=== PATIENT | female | born 1980 | race Caucasian/White ===

== ENCOUNTER 2017-09-25 16:37 | Emergency (ER) | payer OTHER ==
[2017-09-25 16:53] VITALS: BP 132/79
--- NOTE | 2017-09-25 17:17 | UC ---
Respiratory Complaint HPI - HPI Summary HPI Summary: Pt presents with generalized body aches, feeling feverish, and mild headache. She tells me that all these symptoms started this morning and wanted to be sure she didn't have the flu. She also mentions that she has left and right sided chest pressure on and off today. She has not taken her temperature or anything OTC for this. Denies sore throat, cough, sinus congestion, SOB, RODRIGUEZ, palpitations, abdominal pain, n/v/d/c, dizziness, or weakness. - History of Current Complaint Hx Obtained From: Patient Hx Last Menstrual Period: IUD Onset/Duration: Sudden Onset Timing: Constant Severity Initially: Moderate Severity Currently: Moderate Pain Intensity: 9 Pain Scale Used: 0-10 Numeric <Jakob Farah - Last Filed: 09/25/17 17:52> <Meera Neumann - Last Filed: 09/25/17 21:23> - History of Current Complaint Chief Complaint: UCGeneralIllness Stated Complaint: FEVER Time Seen by Provider: 09/25/17 16:59 - Allergies/Home Medications Allergies/Adverse Reactions: Allergies Allergy/AdvReac Type Severity Reaction Status Date / Time No Known Allergies Allergy Verified 08/22/13 12:10 Home Medications: Home Medications Ibuprofen [Advil] 200 mg PO TID PRN 09/25/17 [History Confirmed 09/25/17] Levonorgestrel (Iud) [Mirena IUD] 20 mcg IU 09/25/17 [History] PMH/Surg Hx/FS Hx/Imm Hx Previously Healthy: Yes - Surgical History Surgical History: None - Social History Alcohol Use: Occasionally Substance Use Type: None Smoking Status (MU): Never Smoked Tobacco - Immunization History Most Recent Influenza Vaccination: 2016 Most Recent Tetanus Shot: 2003 Most Recent Pneumonia Vaccination: none <Jakob Farah - Last Filed: 09/25/17 17:52> Review of Systems Constitutional: Other - Body aches Skin: Negative ENT: Negative Respiratory: Negative Cardiovascular: Negative Gastrointestinal: Negative Genitourinary: Negative Neurovascular: Negative Musculoskeletal: Negative All Other Systems Reviewed And Are Negative: Yes <Jakob Farah - Last Filed: 09/25/17 17:52> Physical Exam Triage Information Reviewed: Yes Appearance: Well-Appearing, No Pain Distress, Well-Nourished Vital Signs: Initial Vital Signs Temp 98.0 F 09/25/17 16:49 Pulse 76 09/25/17 16:49 Resp 18 09/25/17 16:49 BP 132/79 09/25/17 16:49 Pulse Ox 100 09/25/17 16:49 Vital Signs Reviewed: Yes Eyes: Positive: Conjunctiva Clear, Other: - EOMI. PERRLA. Negative: Conjunctiva Inflamed, Discharge ENT: Positive: Hearing grossly normal, Pharynx normal, TMs normal, Uvula midline. Negative: Pharyngeal erythema, Nasal congestion, Nasal drainage, TM bulging, TM dull, TM red, Tonsillar swelling, Tonsillar exudate, Hoarse voice, Sinus tenderness Neck: Positive: Supple, Nontender, No Lymphadenopathy Respiratory: Positive: Chest non-tender, Lungs clear, Normal breath sounds, No respiratory distress, No accessory muscle use Cardiovascular: Positive: RRR, No Murmur, Pulses Normal Abdomen Description: Positive: Nontender, No Organomegaly, Soft. Negative: CVA Tenderness (R), CVA Tenderness (L), Distended, Guarding Bowel Sounds: Positive: Present Neurological: Positive: Alert. Negative: Fatigued Psychological: Positive: Age Appropriate Behavior Skin: Negative: rashes <Jakob Farah - Last Filed: 09/25/17 17:52> Vital Signs: Initial Vital Signs Temp 98.0 F 09/25/17 16:49 Pulse 76 09/25/17 16:49 Resp 18 09/25/17 16:49 BP 132/79 09/25/17 16:49 Pulse Ox 100 09/25/17 16:49 <Meera Neumann - Last Filed: 09/25/17 21:23> Diagnostic Evaluation - Laboratory O2 Sat by Pulse Oximetry: 100 - EKG Cardiac Rate: NL Cardiac Rhythm: Sinus: Normal ST Segment: Normal <Jakob Farah - Last Filed: 09/25/17 17:52> Respiratory Course/Dx - Course Course Of Treatment: POC flu negative. EKG sinus rhythm. Rate 60. No ST elevation. Read by Dr. Neumann. Currently she appears well and is in no distress. I suspect this is a viral illness and have advised her to rest, drink plenty of water, and take ibuprofen as needed for discomfort. If symptoms worsen - go to ED. - Differential Dx/Diagnosis Differential Diagnosis/HQI/PQRI: Asthma, Bronchitis, Influenza, Lower Resp Infection, Sinusitis, Other - arrhythmia Provider Diagnoses: Viral illness. Chest pressure. Body aches <Jakob Farah - Last Filed: 09/25/17 17:52> Discharge <Jakob Farah - Last Filed: 09/25/17 17:52> <Meera Neumann - Last Filed: 09/25/17 21:23> - Discharge Plan Condition: Stable Disposition: HOME Patient Education Materials: Influenza (ED) Referrals: No Primary Care Phys,NOPCP [Primary Care Provider] - Additional Instructions: If you develop a fever, shortness of breath, chest pain, new or worsening symptoms - please call your PCP or go to the ED.
== END 2017-09-25 17:45 | disposition home or self-care (01) ==
LOC: UCEAST 16:37
DX: B34.9 Viral infection, unspecified (principal); R07.89 Other chest pain; M79.1 Myalgia
CPT/HCPCS: 87502; 93005; 99202; G0463

== ENCOUNTER 2018-03-08 17:41 | Emergency (ER) | payer OTHER ==
[2018-03-08 17:53] VITALS: BP 132/74
[2018-03-08] MEDS ORDERED: NS 0.9% 1000 ML* 1,000 ML IV ONE (17:53)
[2018-03-08] MEDS ORDERED: Ondansetron ODT TAB* 4 MG PO ONE (17:54)
--- NOTE | 2018-03-08 18:19 | UC ---
Jenna Soriano Elizabeth, scribed for Gabriele Lovett MD on 03/08/18 at 1755 . Abdominal Pain Female HPI - HPI Summary HPI Summary: This patient is a 37 year old F presenting to [facility] with a chief complaint of nausea and vomiting since this afternoon. Symptoms aggravated by nothing. Symptoms alleviated by nothing. Patient reports lightheadedness, feeling like she could pass out, shortness of breath, numbness in both upper extremities and that her hands temporarily locked and she couldnt move them. Patient denies dizziness. - History of Current Complaint Stated Complaint: VOMITING, AND DIZZINESS Time Seen by Provider: 03/08/18 17:44 Hx Obtained From: Patient Hx Last Menstrual Period: IUD Onset/Duration: Sudden Onset, Lasting Minutes, Still Present Severity Initially: Moderate Severity Currently: Moderate Aggravating Factor(s): Nothing Alleviating Factor(s): Nothing Associated Signs and Symptoms: Positive: Nausea, Vomiting, Other: - shortness of breath, lightheadedness, numbness in both upper extremities. Negative: Dizzy Allergies/Adverse Reactions: Allergies Allergy/AdvReac Type Severity Reaction Status Date / Time No Known Allergies Allergy Verified 03/08/18 17:53 Home Medications: Home Medications NK [No Home Medications Reported] 03/08/18 [History Confirmed 03/08/18] PMH/Surg Hx/FS Hx/Imm Hx Previously Healthy: Yes - Surgical History Surgical History: None - Social History Alcohol Use: Occasionally Substance Use Type: None Smoking Status (MU): Never Smoked Tobacco - Immunization History Most Recent Influenza Vaccination: 2017 Most Recent Tetanus Shot: 2004 Most Recent Pneumonia Vaccination: none Review of Systems Respiratory: Shortness Of Breath Gastrointestinal: Vomiting, Nausea Musculoskeletal: Decreased ROM - temporarily unable to move both hands Neurological: Numbness - in bilateral upper extremities All Other Systems Reviewed And Are Negative: Yes Physical Exam - Summary Physical Exam Summary: VITAL SIGNS: Reviewed. GENERAL: Patient is a well-developed and nourished FEMALE who is lying comfortable in the stretcher. Patient is hyperventilating HEAD AND FACE: Normocephalic EYES: PERRLA, EOMI x 2. EARS: Hearing grossly intact. MOUTH: Oropharynx within normal limits. NECK: Supple, trachea is midline, no adenopathy, no JVD, no carotid bruit. CHEST: Symmetric, no tenderness at palpation LUNGS: Clear to auscultation bilaterally. No wheezing or crackles. The patient is hyperventilating. CVS: Regular rate and rhythm, S1 and S2 present, no murmurs or gallops appreciated. ABDOMEN: Soft, non-tender. Bowel sounds are normal. No abdominal abnormal pulsations. EXTREMITIES: Full ROM in all major joints, no edema, no cyanosis or clubbing. NEURO: Alert and oriented x 3. No acute neurological deficits. Speech is normal and follows commands. SKIN: Dry and warm Triage Information Reviewed: Yes Vital Signs: Initial Vital Signs Temp 97.7 F 03/08/18 17:51 Pulse 79 03/08/18 17:51 Resp 26 03/08/18 17:51 BP 132/74 03/08/18 17:51 Pulse Ox 100 03/08/18 17:51 Vital Signs Reviewed: Yes Diagnostics - EKG Cardiac Rate: NL - at 86 bpm Cardiac Rhythm: Sinus: Normal - Sinus rhythm, no ST elevation ST Segment: Normal Abd Pain Female Course/Dx - Course Course Of Treatment: This patient is a 37-year-old female who presents to the urgent care physician complaining of a near syncopal episode associated with nausea and vomiting and shortness of breath. Patient reports that she had 2 episodes of near syncope. EKG is a normal sinus rhythm without any ST elevations. We started an IV access to the patient given IV fluids and she was given Zofran for nausea and vomiting. Because of the continued feelings of near syncope the patient will be transferred to the emergency department via ambulance. At this point the patient is hemodynamically stable and she is alert and oriented 3. I discussed the case with Sunitha charge nurse at [facility]. - Differential Dx/Diagnosis Provider Diagnoses: Near syncopal episode. Nausea and vomiting. Anxiety Discharge - Sign-Out/Discharge Documenting (check all that apply): Discharge/Admit/Transfer - Discharge Plan Condition: Stable Disposition: TRANS HIGHER LVL OF CARE FAC Referrals: No Primary Care Phys,NOPCP [Primary Care Provider] - - Billing Disposition and Condition Condition: STABLE Disposition: Trans Higher Lvl of Care Fac The documentation as recorded by the Jenna rivers Elizabeth accurately reflects the service I personally performed and the decisions made by , Gabriele Lovett MD.
== END 2018-03-08 18:41 | disposition short-term general hospital (02) ==
LOC: UCEAST 17:41
DX: R55 Syncope and collapse (principal); R11.2 Nausea with vomiting, unspecified; F41.9 Anxiety disorder, unspecified
CPT/HCPCS: 93005; 96360; 99213; A9270-GY; G0463

== ENCOUNTER 2018-03-08 19:05 | Emergency (ER) | payer OTHER ==
[2018-03-08] MEDS ORDERED: NS 0.9% 1000 ML* 1,000 ML IV ONE (19:55)
[2018-03-08] MEDS ORDERED: LORazepam INJ* 2 MG/ML 1 ML VIAL IV PUSH ONE (19:55)
[2018-03-08 20:59] LABS: ABS Basophils 0 10^3/ul (0-0.2); ABS Eosinophils 0 10^3/ul (0-0.6); ABS Monocytes 0.4 10^3/ul (0-0.8); ABS Neutrophils 8.3 10^3/ul (1.5-7.7); ABS Nucleated RBC 0 10^3/ul; Eosinophil % 0 % (0-6); Hematocrit 40 % (35-47); Hemoglobin 13.6 g/dl (12.0-16.0); Lymphocyte % 10.2 % (25-47); Mean Corpuscular HGB Conc 34 g/dl (31-36); Mean Corpuscular Hemoglobin 31 pg (27-31); Mean Corpuscular Volume 90 fL (80-97); Mean Platelet Volume 8.6 um3 (7.4-10.4); Nucleated Red Blood Cells % 0; Platelet Count 220 10^3/ul (150-450); Red Blood Count 4.44 10^6/ul (4.00-5.40); Red Cell Distribution Width 13 % (10.5-15); White Blood Count 9.7 10^3/ul (3.5-10.8)
[2018-03-08 21:25] LABS: EGFR Non-African American 86.5 (>60)
[2018-03-08 22:14] VITALS: BP 129/82
--- NOTE | 2018-03-09 04:15 | ED ---
Toni Soriano Tariq, scribed for Jimi Lopez MD on 03/08/18 at 2022 . Complex/Multi-Sys Presentation - HPI Summary HPI Summary: A 37 year old female ESAU presents to the ED c/o SOB and hyperventilation. Additionally c/o nausea and dizziness. Pt stated that she was actively moving outside earlier today when she felt hot and light-headed. Currently, she feels "tingly". Pt stated that she felt tightnes in hands and legs, heart was racing and diaphoresis. Pt vomited three times earlier. She denies LOC, headache, CP, diarrhea and abdominal pain. As per , pt is known to get sick frequently. Currently, no new medications. - History Of Current Complaint Chief Complaint: EDDizziness Time Seen by Provider: 03/08/18 19:49 Hx Obtained From: Patient Onset/Duration: Sudden Onset, Lasting Hours, Still Present - Feels tingly Timing: Hours Severity Currently: None Associated Signs And Symptoms: Positive: Dizziness, SOB, Nausea, Diaphoresis, Other - light-headed. Negative: Headache, Abdominal Pain - Allergies/Home Medications Allergies/Adverse Reactions: Allergies Allergy/AdvReac Type Severity Reaction Status Date / Time No Known Allergies Allergy Verified 03/08/18 17:53 PMH/Surg Hx/FS Hx/Imm Hx Endocrine/Hematology History: Denies: Hx Diabetes Respiratory History: Reports: Hx Asthma Infectious Disease History: No Infectious Disease History: Denies: Traveled Outside the [place] in Last 30 Days - Family History Known Family History: Negative: Diabetes - Social History Alcohol Use: Occasionally Substance Use Type: Reports: None Smoking Status (MU): Never Smoked Tobacco Review of Systems Negative: Fever Positive: Other - Heart was racing. Negative: Chest Pain Positive: Shortness Of Breath Positive: Vomiting, Nausea. Negative: Abdominal Pain, Diarrhea Neurological: Other - POSITIVE:Dizziness; NEGATIVE: LOC Negative: Headache All Other Systems Reviewed And Are Negative: Yes Physical Exam - Summary Physical Exam Summary: Appearance: Well appearing, no pain distress. Eyes closed during exam Skin: warm, dry, reflects adequate perfusion Head/face: normal Eyes: EOMI, LACHO ENT: normal. Mucous membranes moist. Neck: supple, non-tender Respiratory: CTA, breath sounds present Cardiovascular: RRR, pulses symmetrical Abdomen: non-tender, soft Bowel Sounds: present Musculoskeletal: normal, strength/ROM intact Neuro: normal, sensory motor intact, A&Ox3 Triage Information Reviewed: Yes Vital Signs On Initial Exam: Initial Vitals Temp Pulse Resp BP Pulse Ox 97.6 F 80 16 130/85 100 03/08/18 19:08 03/08/18 19:08 03/08/18 19:08 03/08/18 19:08 03/08/18 19:08 Vital Signs Reviewed: Yes Diagnostics - Vital Signs Vital Signs Temp Pulse Resp BP Pulse Ox 03/08/18 20:07 16 03/08/18 19:11 79 130/85 98 03/08/18 19:08 97.6 F 80 16 130/85 100 - Laboratory Lab Results: Lab Results 03/08/18 03/08/18 03/08/18 Range/Units 20:15 20:54 20:54 WBC 9.7 (3.5-10.8) 10^3/ul RBC 4.44 (4.00-5.40) 10^6/ul Hgb 13.6 (12.0-16.0) g/dl Hct 40 (35-47) % MCV 90 (80-97) fL MCH 31 (27-31) pg MCHC 34 (31-36) g/dl RDW 13 (10.5-15) % Plt Count 220 (150-450) 10^3/ul MPV 8.6 (7.4-10.4) um3 Neut % (Auto) 85.6 H (38-83) % Lymph % (Auto) 10.2 L (25-47) % [place] % (Auto) 3.8 (0-7) % Eos % (Auto) 0 (0-6) % Baso % (Auto) 0.4 (0-2) % Absolute Neuts (auto) 8.3 H (1.5-7.7) 10^3/ul Absolute Lymphs (auto) 1.0 (1.0-4.8) 10^3/ul Absolute Monos (auto) 0.4 (0-0.8) 10^3/ul Absolute Eos (auto) 0 (0-0.6) 10^3/ul Absolute Basos (auto) 0 (0-0.2) 10^3/ul Absolute Nucleated RBC 0 10^3/ul Nucleated RBC % 0 ABG pH 7.60 H (7.35-7.45) ABG pCO2 < 20 L (35-45) mmHg ABG pO2 128 H (80-100) mmHg ABG HCO3 24.5 (19-31) mmol/L ABG O2 Saturation 99.3 H (95-98) % ABG Base Excess -0.6 (-2.0-2.0) Sodium 137 (135-145) mmol/L Potassium 3.3 L (3.5-5.0) mmol/L Chloride 106 (101-111) mmol/L Carbon Dioxide 21 L (22-32) mmol/L Anion Gap 10 (2-11) mmol/L BUN 11 (6-24) mg/dL Creatinine 0.75 (0.51-0.95) mg/dL Est GFR ( Amer) 111.2 (>60) Est GFR (Non-Af Amer) 86.5 (>60) BUN/Creatinine Ratio 14.7 (8-20) Glucose 130 H (70-100) mg/dL Calcium 8.4 L (8.6-10.3) mg/dL TSH 1.51 (0.34-5.60) mcIU/mL Result Diagrams: 03/08/18 20:54 03/08/18 20:54 Lab Statement: Any lab studies that have been ordered have been reviewed, and results considered in the medical decision making process. - EKG 1950 Cardiac Rate: NL - 82 bpm EKG Rhythm: Sinus Rhythm ST Segment: Normal EKG Interpretation: QTc prolonged at 527 [id number] Cardiac Rate: NL - 75 BPM EKG Rhythm: Sinus Rhythm ST Segment: Normal EKG Interpretation: Normal axis and normal intervals including QTc Re-Evaluation - Re-Evaluation First Eval Re-Evaluation Time: 21:44 Change: Improved Complex Multi-Symp Course/Dx Course Of Treatment: Patient presented with significant hyperventilation over a couple hours. She's had anxiety as well. She was near syncopal at times. Initial QTC was prolonged at 527 however her pH was 7.6 at that time. Fluids, Ativan normalized her respiratory rate and her QTC on subsequent EKG was normalized. Patient was feeling much better and she was discharged in good condition to follow up closely with her primary care physician. - Diagnoses Differential Diagnoses/HQI/PQRI: Metabolic Abnormality, Urinary Tract Infection , Other - Anxiety reaction, hyperventilation syndrome Provider Diagnoses: Panic attack, Hyperventilation syndrome Discharge - Sign-Out/Discharge Documenting (check all that apply): Discharge/Admit/Transfer - Discharge - Discharge Plan Condition: Improved Disposition: HOME Prescriptions: hydrOXYzine pamoate [Vistaril] 25 mg PO TID PRN #20 cap PRN Reason: Anxiety Patient Education Materials: Hyperventilation (ED), Panic Attack (ED) Referrals: No Primary Care Phys,NOPCP [Primary Care Provider] - Additional Instructions: Follow-up with your doctor tomorrow. Hydrate well. Return if worse, new symptoms or other concerns. Avoid caffeine, alcohol. Get plenty of sleep. - Billing Disposition and Condition Condition: IMPROVED Disposition: Home The documentation as recorded by the Toni rivers Tariq accurately reflects the service I personally performed and the decisions made by me, Jimi Lopez MD.
== END 2018-03-08 22:13 | disposition home or self-care (01) ==
LOC: ED 19:05
DX: F41.0 Panic disorder [episodic paroxysmal anxiety] (principal); F45.8 Other somatoform disorders
CPT/HCPCS: 36415; 80048; 82803; 84443; 85025; 93005; 96374; 99283; J2060